=== PATIENT | male | born 1995 | race Caucasian/White ===

== ENCOUNTER 2017-03-28 22:26 | Emergency (ER) | payer SELFPAY, OTHER | END 2017-03-29 01:54 | disposition left against medical advice (07) | LOC: FTE 22:26 → E/R 03-29 01:54 | DX: Z53.21 Procedure and treatment not carried out due to patient leaving prior to being seen by health care provider (principal) ==

== ENCOUNTER 2017-03-29 20:43 | Inpatient (IN) | payer OTHER ==
[2017-03-29] MEDS ORDERED: NACL 0.9% 3 ML SYG IV (22:00)
[2017-03-29] MEDS ORDERED: morphine 2 MG INJ IV (22:00)
[2017-03-29] MEDS ORDERED: ONDANSETRON 4 MG INJ IV (22:00)
[2017-03-29] MEDS ORDERED: ALBUTEROL/IPRATROPIUM (NEB) 3 ML AMP HHN (22:00)
[2017-03-29] MEDS ORDERED: ACETAMINOPHEN 325 MG TAB PO (22:00)
[2017-03-30 01:05] LABS: ADD MAN DIFF? NO
[2017-03-30 01:06] LABS: BASOPHIL # 0.1 10^3/ul (0.0-0.1); BASOPHILS % 0.7 % (0.0-2.0); EOSINOPHILS # 0.2 10^3/ul (0.0-0.5); EOSINOPHILS % 2.1 % (0.0-7.0); HEMOGLOBIN 14.8 g/dl (14.0-18.0); LYMPHOCYTES # 2.3 10^3/ul (0.8-2.9); MEAN CORPUSCULAR HEMOGLOBIN 30.6 pg (29.0-33.0); MEAN CORPUSCULAR HGB CONC 34.4 g/dl (32.0-37.0); MEAN CORPUSCULAR VOLUME 88.8 fl (82.0-101.0); MEAN PLATELET VOLUME 10.1 fl (7.4-10.4); MONOCYTE # 0.9 10^3/ul (0.3-0.9); MONOCYTES % 11.8 % (0.0-11.0); NEUTROPHIL # 4.1 10^3/ul (1.6-7.5); NEUTROPHILS % 54.3 % (39.0-77.0); PLATELET COUNT 284 10^3/UL (140-415); RED BLOOD COUNT 4.84 10^6/ul (4.70-6.10); RED CELL DISTRIBUTION WIDTH 11.9 % (11.5-14.5)
[2017-03-30 01:06] LABS: WHITE BLOOD COUNT 7.5 10^3/ul (4.8-10.8)
[2017-03-30 01:35] LABS: INR 0.87; PROTIME 11.9 Sec (11.9-14.9); PT RATIO 0.9
[2017-03-30 01:36] LABS: PARTIAL THROMBOPLASTIN TIME 30.7 Sec (25.0-35.0)
[2017-03-30 02:41] LABS: ALANINE AMINOTRANSFERASE 37 IU/L (13-69); ALBUMIN 4.3 g/dl (3.3-4.9); ALBUMIN/GLOBULIN RATIO 1.43; ALKALINE PHOSPHATASE 77 IU/L (42-121); ANION GAP 18 (8-16); ASPARTATE AMINO TRANSFERASE 28 IU/L (15-46); BILIRUBIN,INDIRECT 0.1 mg/dl (0-1.1); BILIRUBIN,TOTAL 0.1 mg/dl (0.2-1.3); BLOOD UREA NITROGEN 18 mg/dl (7-20); CALCIUM 9.1 mg/dl (8.4-10.2); CARBON DIOXIDE 28 mmol/L (21-31); CHLORIDE 103 mmol/L (97-110); CREATININE 0.92 mg/dl (0.61-1.24); GLUCOSE 104 mg/dl (70-220); SODIUM 145 mmol/L (135-144); TOTAL PROTEIN 7.3 g/dl (6.1-8.1)
[2017-03-30] MEDS: NICOTINE (21 MG/24 HR) PATCH TRANSDERM ×2 (02:57→09:00)
[2017-03-30] MEDS ORDERED: VANCOMYCIN IV PER PHARMACY XX (08:00)
[2017-03-30] MEDS: CEFEPIME 1GM/50 ML (PMX) 50 ML IVPB ×2 (10:30→21:10)
[2017-03-30] MEDS: VANCOMYCIN 2 GM in DEXTROSE 5% 500 ML IVPB (11:04)
[2017-03-30] MEDS: VANCOMYCIN 1 GM 250 ML IVPB (22:30)
[2017-03-31] MEDS: VANCOMYCIN 1 GM 250 ML IVPB ×2 (05:40→15:49)
[2017-03-31 07:17] LABS: ANION GAP 19 (8-16); BLOOD UREA NITROGEN 18 mg/dl (7-20); CALCIUM 8.8 mg/dl (8.4-10.2); CARBON DIOXIDE 27 mmol/L (21-31); CHLORIDE 101 mmol/L (97-110); CREATININE 0.87 mg/dl (0.61-1.24); GLUCOSE 99 mg/dl (70-220); PHOSPHORUS 5.2 mg/dl (2.5-4.9); POTASSIUM 4.1 mmol/L (3.5-5.1); SODIUM 143 mmol/L (135-144)
[2017-03-31 07:22] LABS: HEMOGLOBIN A1C 5.4 % (0-5.9)
[2017-03-31] MEDS: CEFEPIME 1GM/50 ML (PMX) 50 ML IVPB ×2 (10:28→20:26)
[2017-03-31] MEDS: NICOTINE (21 MG/24 HR) PATCH TRANSDERM (10:29)
[2017-03-31 13:39] LABS: VANCOMYCIN,TROUGH 10.2 ug/ml (10.0-20.0)
[2017-04-01] MEDS: VANCOMYCIN 1.25 GM in SODIUM CHLORIDE 0.45 % 250 ML IVPB ×2 (02:30→10:54)
[2017-04-01] MEDS: CEFEPIME 1GM/50 ML (PMX) 50 ML IVPB (08:52)
[2017-04-01] MEDS: NICOTINE (21 MG/24 HR) PATCH TRANSDERM (08:52)
== END 2017-04-01 16:24 | disposition home or self-care (01) | DRG 603 ==
LOC: MS3 20:43 → PP2 03-31 16:00
DX: L02.611 Cutaneous abscess of right foot (principal)
CPT/HCPCS: 73718; 80048; 80053; 80202; 83036; 83735; 84100; 85025; 85610; 85730

== ENCOUNTER 2018-07-19 12:22 | Emergency (ER) | payer OTHER ==
[2018-07-19] MEDS: HYDROCODONE/APAP (5/325) TAB PO (14:50)
[2018-07-19] MEDS: LIDOCAINE 1% (MPF) 5 ML VIAL INFIL (14:50)
== END 2018-07-19 16:05 | disposition home or self-care (01) ==
LOC: FTE 12:22
DX: L02.212 Cutaneous abscess of back [any part, except buttock and flank] (principal)
CPT/HCPCS: 10060; 99283-25

== ENCOUNTER 2018-07-21 09:04 | Emergency (ER) | payer OTHER ==
[2018-07-21] MEDS: IBUPROFEN 800 MG TAB PO (10:19)
== END 2018-07-21 12:09 | disposition left against medical advice (07) ==
LOC: FTE 09:04
DX: L05.01 Pilonidal cyst with abscess (principal); F17.210 Nicotine dependence, cigarettes, uncomplicated
CPT/HCPCS: 99282; Z7502